=== PATIENT | female | born 1995 | race African-American/Black ===

== ENCOUNTER 2020-11-07 10:10 | Inpatient (IN) | payer OTHER ==
[2020-11-07 12:13] LABS: BASO % 0.3 % (0-2.0); EOS % 0.4 % (0-4.5); HEMATOCRIT 32.7 % (32.4-45.2); HEMOGLOBIN 10.7 GM/dL (10.7-15.3); LYMPH % 18.5 % (8-40); MCH 27.7 pg (25.7-33.7); MCHC 32.6 g/dl (32.0-36.0); MEAN PLT VOLUME 9.5 fl (7.5-11.1); MONO % 6.7 % (3.8-10.2); NEUT % 74.1 % (42.8-82.8); PLATELET COUNT 191 10^3/uL (134-434); RBC 3.85 M/mm3 (3.60-5.2); WHITE BLOOD COUNT 11.6 K/mm3 (4.0-10.0)
[2020-11-07 12:23] LABS: INR 0.9 (0.83-1.09); PROTHROMBIN TIME (PATIENT) 11.1 SEC (9.7-13.0)
[2020-11-07 12:32] LABS: BLOOD UREA NITROGEN 7.4 mg/dL (7-18); CALCIUM 9.3 mg/dL (8.5-10.1)
[2020-11-07 12:35] LABS: CREATININE 0.5 mg/dL (0.55-1.3)
[2020-11-07] MEDS: ELECTROLYTE-148 SOLN 1,000 ML IV SCH (15:00)
[2020-11-07 15:04] VITALS: BMI 22.5
[2020-11-07] MEDS ORDERED: morphine SULFATE/PF 1 MG/2 ML (2cc Syringe - QUVA) EP ONE (15:39)
[2020-11-07] MEDS ORDERED: ONDANSETRON 4 MG/2 ML VIAL IVPUSH PRN (15:39)
[2020-11-07] MEDS ORDERED: morphine SULFATE/Preservative Free 0.5 MG/ML (1cc Syringe) ONE (16:23)
[2020-11-07] MEDS ORDERED: ceFAZolin SODIUM 1 GM VIAL ONE (16:24)
[2020-11-07] MEDS ORDERED: OXYTOCIN 10 UNIT/ML 10ML MDV ONE ×2 (16:51→16:52)
[2020-11-07] MEDS ORDERED: MIDAZOLAM HCL 2 MG/2 ML SINGLE DOSE VIAL ONE (16:56)
[2020-11-07] MEDS ORDERED: KETOROLAC TROMETHAMINE 30 MG/1 ML VIAL ONE (16:56)
[2020-11-07] MEDS ORDERED: ONDANSETRON 4 MG/2 ML VIAL ONE (17:03)
[2020-11-07] MEDS ORDERED: CITRIC ACID/SODIUM CITRATE 30 ML UNIT-DOSE CUP PO ONE (17:36)
[2020-11-07] MEDS ORDERED: ACETAMINOPHEN 1000 MG/100 ML VIAL (NON FORMULARY) IVPB PRN (17:37)
[2020-11-07] MEDS ORDERED: oxyCODONE HCL 5 MG TABLET PO PRN (17:37)
[2020-11-07] MEDS ORDERED: ONDANSETRON 4 MG/2 ML VIAL IVPB PRN (17:37)
[2020-11-07] MEDS ORDERED: IBUPROFEN 800 MG/8 ML IJ IVPB PRN (17:37)
[2020-11-07] MEDS ORDERED: OXYTOCIN 20 UNITS in 0.9% NS 20 UNIT/1,000 ML INFUS.BAG IV SCH (17:45)
[2020-11-07 17:52] LABS: CORD BASE EXCESS -6.4 mmol/L (0-2); CORD HCO3 20.5 mmHg (20-29); CORD PCO2 46.7 mmHg (30-78); CORD pH 7.261 (7.14-7.44)
[2020-11-07 17:55] LABS: CORD BASE EXCESS -1.7 mmol/L (0-2); CORD HCO3 23.6 mmHg (20-29); CORD PCO2 42.4 mmHg (30-78); CORD pH 7.364 (7.14-7.44)
[2020-11-08 11:44] LABS: BASO % 0.2 % (0-2.0); EOS % 0.5 % (0-4.5); HEMATOCRIT 27.7 % (32.4-45.2); LYMPH % 11.6 % (8-40); MCH 27.6 pg (25.7-33.7); MCHC 32.3 g/dl (32.0-36.0); MEAN CELL VOLUME 85.4 fl (80-96); MONO % 6.9 % (3.8-10.2); NEUT % 80.8 % (42.8-82.8); PLATELET COUNT 154 10^3/uL (134-434); RBC 3.24 M/mm3 (3.60-5.2); RDW 14.8 % (11.6-15.6); WHITE BLOOD COUNT 15.9 K/mm3 (4.0-10.0)
[2020-11-08] MEDS: SIMETHICONE 80 MG TAB.CHEW (FP) PO PRN ×2 (15:05→22:27)
[2020-11-08] MEDS ORDERED: BISACODYL 10 MG SUPP.RECT RC PRN (17:38)
[2020-11-08] MEDS: ELECTROLYTE-148 SOLN 1,000 ML IV SCH (18:20)
[2020-11-08] MEDS: ACETAMINOPHEN 325 MG TABLET (FP) PO PRN ×2 (18:50→22:27)
[2020-11-08] MEDS: IBUPROFEN 600 MG TABLET (FP) PO PRN (18:50)
[2020-11-08] MEDS: SENNOSIDES/DOCUSATE COMBO (SENNA PLUS) TABLET (UD) PO PRN (22:28)
[2020-11-09] MEDS: ACETAMINOPHEN 325 MG TABLET (FP) PO PRN (06:21)
[2020-11-09] MEDS: IBUPROFEN 600 MG TABLET (FP) PO PRN ×3 (09:18→19:51)
[2020-11-09] MEDS: SIMETHICONE 80 MG TAB.CHEW (FP) PO PRN ×3 (09:18→19:51)
[2020-11-09] MEDS: SENNOSIDES/DOCUSATE COMBO (SENNA PLUS) TABLET (UD) PO PRN (19:51)
[2020-11-10] MEDS: IBUPROFEN 600 MG TABLET (FP) PO PRN ×3 (00:38→13:43)
[2020-11-10] MEDS: SIMETHICONE 80 MG TAB.CHEW (FP) PO PRN ×3 (00:39→13:43)
[2020-11-10 10:39] VITALS: BP 117/74; PULSE 76; TEMP 98.3
== END 2020-11-10 15:20 | disposition home or self-care (01) | DRG 540 ==
LOC: JDEL 10:10 → JLDR 11:30 → J3N 21:44 → J3W 11-08 17:55
PROVIDERS: ADMIT Specialist; ATTEND Specialist
PROC: 10D00Z1 Extraction of Products of Conception, Low, Open Approach (ICD-10-PCS; principal; 2020-11-07)
DX: O36.5930 Maternal care for other known or suspected poor fetal growth, third trimester, not applicable or unspecified (principal); O28.8 Other abnormal findings on antenatal screening of mother; O69.81X0 Labor and delivery complicated by cord around neck, without compression, not applicable or unspecified; Z3A.37 37 weeks gestation of pregnancy; Z37.0 Single live birth
CPT/HCPCS: 36415; 36600; 80048; 82803; 85025; 85610; 85730; 86780; 86850; 86900; 86901; 87086; 88307-TC; C9803; U0003; U0005